=== PATIENT | male | born 1940 | race Caucasian/White ===

== ENCOUNTER 2017-08-27 16:40 | Emergency (ER) | payer OTHER, MEDICARE ==
[~2017-08-27] VITALS: Ht 182.9 cm; Wt 77.2 kg
[2017-08-27] MEDS ORDERED: NORCO 5/3251 TABLET PO (18:57)
[2017-08-27] MEDS ORDERED: STOOL SOFTENER250 MG PO (18:57)
[2017-08-27] MEDS ORDERED: ZOFRAN ODT4 MG PO (18:57)
[2017-08-27 19:17] LABS: HEMATOCRIT 41.7 % (38.0-50.0); MCH 33.2 PG (29.0-34.0); MCHC 33.6 G/DL (30.0-36.0); MCV 98.8 FL (86-99); MEAN PLAT.VOLUME 10.1 uM^3 (9.0-12.4); PLATELET COUNT 194 K/uL (156-360); RBC DIS.WIDTH-CV 12.6 % (11.8-14.6); RBC DIS.WIDTH-SD 45.4 % (39-53); RED BLOOD COUNT 4.22 M/uL (4.00-5.50); WHITE BLOOD COUNT 10.8 K/uL (4.1-10.2)
[2017-08-27 19:28] LABS: CHLORIDE 106 mEq/L (99-109); POTASSIUM 4.3 mEq/L (3.7-5.4); SODIUM 139 mEq/L (136-147)
[2017-08-27 19:30] LABS: GLUCOSE 96 mg/dL (70-99)
[2017-08-27 19:31] LABS: ANION GAP 12 MEQ/L (2-14)
[2017-08-27 19:33] LABS: GFR ESTIMATE (CALCULATED) > 59 mL/min/
[2017-08-27 19:34] LABS: UREA NITROGEN (BUN) 23 mg/dL (9-23)
[2017-08-27 21:05] VITALS: BP 110/61
[2017-08-28] MEDS ORDERED: PRILOSEC20 MG PO (14:22)
[2017-08-28] MEDS ORDERED: PRAVACHOL40 MG PO (14:22)
[2017-08-28] MEDS ORDERED: VOLTAREN75 MG PO (14:23)
[2017-08-28] MEDS ORDERED: PROSCAR5 MG PO (14:23)
== END 2017-08-27 21:21 | disposition home or self-care (01) ==
LOC: EME 16:40
PROVIDERS: Nurse Practitioner Family
PROC: 0QSJXZZ Reposition Right Fibula, External Approach (ICD-10-PCS; principal; 2017-08-27)
DX: S82.61XA Displaced fracture of lateral malleolus of right fibula, initial encounter for closed fracture (principal); S93.01XA Subluxation of right ankle joint, initial encounter; W01.0XXA Fall on same level from slipping, tripping and stumbling without subsequent striking against object, initial encounter; Y93.53 Activity, golf
CPT/HCPCS: 73610; 80048; 85027; 93005; 99281; 99285; J2405; J3010